=== PATIENT | female | born 1950 | race Caucasian/White ===

== ENCOUNTER 2020-12-09 15:24 | Inpatient (IN) | payer MEDICARE, BC ==
[~2020-12-09] VITALS: Ht 157.5 cm; Wt 74.8 kg
[2020-12-09 15:31] VITALS: BP 198/98
[2020-12-09] MEDS ORDERED: CARVEDILOL12.5 MG PO (15:37)
[2020-12-09] MEDS ORDERED: COLLAGEN PLUS1 EACH PO (15:37)
[2020-12-09] MEDS ORDERED: FOLIC ACID1 MG PO (15:38)
[2020-12-09] MEDS ORDERED: TART CHERRY CA1 EACH PO (15:38)
[2020-12-09] MEDS ORDERED: CINNAMON500 MG PO (15:38)
[2020-12-09] MEDS ORDERED: TURMERIC500 M2 PO (15:39)
[2020-12-09] MEDS ORDERED: GARLIC OIL1000 MG PO (15:39)
[2020-12-09] MEDS ORDERED: FISH OIL 1,0001 EAC9 PO (15:40)
[2020-12-09] MEDS ORDERED: COPPER2 MG PO (15:40)
[2020-12-09] MEDS ORDERED: IBUPROFEN 200200 M1 PO (15:40)
[2020-12-09] MEDS ORDERED: NIACIN500 M2 PO (15:40)
[2020-12-09] MEDS ORDERED: HYDROCODON-ACE1 EAC7 PO (15:41)
[2020-12-09] MEDS ORDERED: DRIZALMA SPRINK60 MG PO (15:41)
[2020-12-09] MEDS ORDERED: NEXIUM20 MG PO (15:41)
[2020-12-09] MEDS ORDERED: [UNRECOGNIZED DRUG - CODE] PO (15:42)
[2020-12-09] MEDS ORDERED: VITAMIN B-121000 MC2 SUBLING (15:42)
[2020-12-09] MEDS ORDERED: BIOTIN1000 MCG PO (15:42)
[2020-12-09] MEDS ORDERED: VITAMINC500 PO (15:43)
[2020-12-09 16:00] LABS: ABSOLUTE BASOPHILS 0.1 thou/uL (0.0-0.2); ABSOLUTE EOSINOPHILS 0.2 thou/uL (0.0-0.7); ABSOLUTE LYMPHOCYTES 1.8 thou/uL (0.8-5.3); ABSOLUTE MONOCYTES 1.1 thou/uL (0.0-1.2); ABSOLUTE NEUTROPHILS 4.4 thou/uL (1.6-8.1); EOSINOPHILS 2.5 %; HEMATOCRIT 28.6 % (37.0-47.0); HEMOGLOBIN 9.3 gm/dL (12.0-15.0); LYMPHOCYTES 24.2 %; MCH 27.7 pg (26.0-34.0); MCHC 32.5 g/dL (28.0-37.0); MCV 85.1 fL (80.0-100.0); MONOCYTES 14.5 %; MPV 7.8 fl. (7.2-11.1); NUCLEATED RBCS 0 /100WBC; PLATELET COUNT* 269 thou/uL (150-400); POLYS 57.8 %; RBC 3.36 mil/uL (4.20-5.00); RDW-CV 14.7 % (10.5-14.5); WBC 7.6 thou/uL (4.0-11.0)
[2020-12-09 16:07] LABS: CALCIUM 9.7 mg/dL (8.5-10.1); CREATININE 1.1 mg/dL (0.6-1.3); POTASSIUM 4.3 mmol/L (3.5-5.1)
[2020-12-09 16:11] LABS: ALBUMIN 2.9 g/dL (3.4-5.0); TOTAL BILIRUBIN 0.2 mg/dL (<0.1-1.0); TOTAL PROTEIN 7.8 g/dL (6.4-8.2)
[2020-12-09 21:08] LABS: CALCIUM 9.5 mg/dL (8.5-10.1); CREATININE 1.1 mg/dL (0.6-1.3); POTASSIUM 4.2 mmol/L (3.5-5.1)
[2020-12-09 21:21] LABS: % SATURATION 6 % (20-39); IRON 14 ug/dL (50-175)
[2020-12-09 21:26] VITALS: BP 160/73
[2020-12-09 22:20] VITALS: BP 172/69
[2020-12-10] VITALS: BP 167/76
[2020-12-10 07:35] VITALS: BP 163/78
--- NOTE | 2020-12-10 08:37 | NUR ---
PATIENT ADMITTED TO ROOM 316 FROM THE ER AT APPROXIMATELY 2145. REPORT GIVEN FROM NIGHT NURSE RODOLFO WHO TOOK ORIGINAL REPORT FROM THE ER NURSE. PATIENT ORIENTED TO ROOM AND POLICIES AND FALL EDUCATION GIVEN. IV FLUIDS STARTED-LEFT AC-NS @ 70ML/HR. IV ABT GIVEN ORDERED WITHOUT ANY ADVERSE SIDE EFFECTS NOTED. PATIENT HAS REMAINED NPO SINCE MIDNIGHT. VSS ON RA. DRESSING TO BILATERAL LOWER EXTREMITIES. PATIENT REFUSED TO HAVE NURSE REMOVE DRESSINGS AND PATIENT STATED THEY WERE JUST CHANGED DURING THE DAY BY THE PODIATRY DRRodney AT THE WOUND CARE CLINIC. MEDICATIONS GIVEN ORDERED AND CHARTED. PATIENT INSTRUCTED TO USE CALL LIGHT WHEN NEEDING ASSISTANCE. HOURLY ROUNDS MADE. WILL CONTINUE WITH PLAN OF CARE AND NURSING TO MONITOR.
--- NOTE | 2020-12-10 13:40 | NUR ---
WOUND NURSE: PATIENT SEEN TO ADDRESS MULTIPLE LESIONS ON BLE AND RIGHT FOOT. RIGHT LOWER LEG PRESENTS WITH A SHALLOW WOUND WITH IRREGULAR EDGES AND LARGE AMOUNT OF YELLOW DRAINAGE AND THE PRESENCE OF ODOR. MEASURES 11.0 X 7.0 X 0.1 CM. PRESENTS WITH RED GRANULATION TISSUE IN THE WOUND BED. PERIWOUND TISSUE IS REDDENED AND WARM TO TOUCH. RIGHT FOOT WOUND PRESENTS A STAGE 3 PRESSURE INJURY MEASURING 1.5 X 1.5 X 0.3 CM, CONTAINS PINK GRANULATION TISSUE IN THE WOUND BED WITH LARGE AMOUNT OF YELLOW DRAINAGE. A SECOND RIGHT FOOT WOUND MEASURES 0.5 X 0.5 X 0.2 CM AND PRESENTS A SHALLOW FULL THICKNESS EROSION. THIS TOO IS A STAGE 3 PRESSURE INJURY. CONTAINS A LARGE AMOUNT OF YELLOW DRAINAGE. LEFT LOWER LEG PRESENTS A SHALLOW EROSION MEASURING 14.5 X 8.0 X 0.2 CM. THERE IS A LARGE AMOUNT OF YELLOW [place] DRAINAGE AND THE WOUND BED CONTAINS 100% YELLOW SLOUGH. THERE IS A FINAL WOUND ON THE LEFT LATERAL ANKLE MEASURNG 7.0 X 7.0 X 0.2 CM AND CONTAINS 100% YELLOW SLOUGH AND LARGE AMOUNT OF YELLOW DRAINAGE. LEGS ARE PAINFUL, REDDENED, AND WARMTH TO TOUCH. THERE IS 1 + PITTING EDEMA NOTED. PATIENT WAS PREMEDICATED WITH FENTANYL AND TREATED TOPICALLY PRIOR TO DRESSING CHANGE AND PATIENT STILL REPORTED PAIN GREATER THAN 10 ON 1 TO 10 PAIN SCALE. ALL WOUNDS WERE CLEANSED WITH TAP WATER AND WASHCLOTHS, THEN PATTED DRY. APPLIED TOPICAL LIDOCAINE TO WOUNDS AND LET SET PRIOR TO CLEANSING. APPLIED THERAHONEY TO EACH WOUND BED, THEN COVERED WITH AQUACEL UNDER ABD, THEN WRAPPED TOES TO KNEE WITH COTTON CAST PADDING UNDER ARINA WRAP. PATIENT INSTRUCTED ON MEASURES TO PROMOTE HEALING AND PREVENT FURTHER COMPLICASIONS. PATIENT STATES SHE UNDERSTANDS.
[2020-12-10 17:00] VITALS: BP 168/69
--- NOTE | 2020-12-10 17:10 | NUR ---
PT REMAINED ALERT AND ORIENTED. PT C/O PAIN, MEDS GIVEN ORDERED. PT RESTING IN BED AND LEGS ELEVATED. DOWN FOR U/S TODAY, AWAITING RESULTS. WOUND CARE DRESSED WOUNDS. HOURLY ROUNDING COMPLETED.
[2020-12-10 21:00] VITALS: BP 149/70
[2020-12-11 04:41] VITALS: BP 161/68
[2020-12-11 07:40] VITALS: BP 177/72
--- NOTE | 2020-12-11 07:51 | NUR ---
PATIENT HAS SLEPT THROUGHOUT THE NIGHT. VSS ON RA. PAIN CONTROLLED WITH ORAL PAIN MEDICATIONS AND CHARTED. ASSESSMENT CHARTED. DRESSINGS TO BILATERAL LOWER LEGS ARE C/D/I. IV IN LEFT AC-NS @ 70ML/HR. IV ABT GIVEN WITHOUT ANY ADVERSE SIDE EFFECTS NOTED. FALL PRECAUTIONS IN PLACE AND HOURLY ROUNDS MADE. WILL CONTINUE WITH PLAN OF CARE AND NURSING TO MONITOR.
--- NOTE | 2020-12-11 08:45 | NUR ---
WOUND NURSE: PATIENT SEEN FOR FOLLOW UP ASSESSMENT PERTAINING TO BLE WOUNDS AND RIGHT FOOT WOUNDS. FAVORABLE PROGRESS TOWARD HEALING NOTED EVIDENCED BY LESS YELLOW SLOUGH IN WOUND BEDS CONTAINING THEM. ALSO THERE IS LESS BLE REDNESS AND DECREASED WARMTH. ALSO, PATIENT TOLERATED DRESSING CHANGES WITHOUT USE OF TOPICAL LIDOCAINE THIS MORNING AND WITHOUT FACIAL GRIMMACING. ALL WOUNDS TREATED PRESCRIBED.
--- NOTE | 2020-12-11 10:47 | NUR ---
Received consult for this patient for IR lower extremity angiography with intervention. Spoke with Dr. Paris and he will come out to [facility] tomorrow for the procedure at 13:00. The [employer] sales representative facility services will also be here for interventional purposes. Dr. Coker aware of plan.
--- NOTE | 2020-12-11 14:01 | NUR ---
Nutrition: Pt admitted with BLE venous stasis ulcers/cellulitis. Wt: 164#. Regular diet ordered. Labs: BG 114, albumin 2.9. RD ordered Santos bid for wound healing. No other nutrition concerns at this time. Mild risk.
--- NOTE | 2020-12-11 14:04 | EKG ---
[place] [address] ELECTROCARDIOGRAM REPORT Name: BAM MATTHEWS Room: [address] ADM IN M.R.#: [id number] Admission: 12/09/20 Attend Phys: Abisai Coker Discharge: Date of : 52 Date of Service: 12/09/20 1542 Report #: [id number] THIS REPORT FOR: //name// [facility] ED Test Date: 2020-12-09 Test Time: 15:42:13 Pat Name: BAM MATTHEWS Department: Room: [facility] Gender: F Technical Applications Specialist: MARISELA : 1950 Requested By: Char Lopez Order Number: [id number] MD: Daniel Plascencia Measurements Intervals [place] Rate: 92 P: 57 UT: 179 QRS: 29 QRSD: 91 T: 49 QT: 357 QTc: 442 Interpretive Statements Sinus rhythm Left atrial enlargement Baseline artifact No previous ECG available for comparison Electronically Signed On 12-11-2020 14:04:05 BUMP GRADER OPERATOR by Daniel Plascencia [email or web address] <ELECTRONICALLY SIGNED> By: Daniel Plascencia MD, [facility] 12/11/20 1404 1542 1542 Daniel Plascencia MD, [facility] /EPI
--- NOTE | 2020-12-11 16:21 | NUR ---
PT.SITTING IN BED, TALKING WITH DAUGHTER,CAMRON. PT.ALERT AND ORIENTED. SHE SAID SHE LIVES ALONE. FAMILY IS SUPPORTIVE. HAS A CANE AND WOULD LIKE A WALKER AT DISCHARGE. TOLD HER WE COULD ORDER ONE FOR HER TO BE DISPENSED FROM THERAPY AT DISCHARGE. SHE IS CURRENT WITH [facility] AND WANTS TO CONINTUE WTIH THEM AT DISCHARGE. SHE IS ANXIOUS TO FIND OUT THE RESULTS OF HER TESTS TODAY. HER DAUGHER,CAMRON PRITCHETT, IS HER DPOA FOR HEALTH CARE. CAMRON WILL TRY TO BRING A COPY FOR CHART.
[2020-12-11 16:23] VITALS: BP 172/70
--- NOTE | 2020-12-11 16:50 | NUR ---
PT REMAINED ALERT AND ORIENTED. CT CAME BACK NEGATIVE, PROCEDURE FOR TOMORROW CANCELLED. PT NOTIFIED. DRESSINGS CHANGED BY WOUND CARE. PAIN MEDS GIVEN ORDERED. HOURLY ROUNDING COMPLETED.
[2020-12-11 20:00] VITALS: BP 177/79
--- NOTE | 2020-12-12 04:34 | NUR ---
PATIENT SLEPT WELL DURING THIS SHIFT. PT USES CALL LIGHT APPROPRIATELY FOR ASSISTANCE TO BATHROOM. PT UP WITH WALKER TO BATHROOM. LOWER EXTREMITIES WITH WOUNDS; DSG AND ARINA WRAP IN PLACE. FLUIDS/ANTIBIOTICS INFUSING PER DR ORDER. FREQUENTLY USED ITEMS AND CALL LIGHT WITHIN REACH. SIDERAILS UPX2. WILL CONTINUE TO MONITOR.
[2020-12-12 07:56] VITALS: BP 159/73
--- NOTE | 2020-12-12 10:15 | NUR ---
WOUND NURSE: PATIENT SEEN FOR DRESSING CHANGES TO BLE AND RIGHT FOOT PRESCRIBED. DR. ASTORGA, PDM HERE AND SAW PATIENT AND C&S OF LEFT ANKLE AND RIGHT FOOT TAKEN.
[2020-12-12] MEDS ORDERED: HYDROCODON-ACE1 EAC7 PO (10:28)
[2020-12-12] MEDS ORDERED: CEFDINIR300 MG PO (10:28)
[2020-12-12] MEDS ORDERED: MOBIC7.5 M1 PO (10:28)
[2020-12-12 14:11] VITALS: BP 159/73
[2020-12-12 15:10] VITALS: BP 159/73
[2020-12-12 15:44] VITALS: BP 159/73
--- NOTE | 2020-12-12 15:46 | NUR ---
PT.WANTED TO USE [facility] AND DOES NOT WANT TO CHOOSE ANOTHER AGENCY. SPOKE WITH [facility] BREWSTER. SHE SAID THEY CANNOT DO DAILY DRESSING CHANGES ORDERED. PLAN IS FOR TO SEE PT.EVERY WEDNESDAY AT [facility] FOR DSG.CHANGE. HOME HEALTH WILL CHANGE ON /. PT.OR DAUGHTER WILL CHANGE WED,WED, SAT AND SUN. HH CANNOT GAURANTEE THEY WOULD HAVE A NURSE FOR SATURDAYS. GAVE VERBAL ORDER TO NARCISA THAT OK FOR HH TO START NEXT .12/17 AND SEE PT.EVERY /. ALL PUT ON DISCHARGE INSTRUCTIONS. APPT.WITH SET UP WITH [facility] FOR AT 2:00. TOLD NURSING TO SEND HOME SOME DRESSINGS AND THERAHONEY IF POSSIBLE.
[2020-12-12 16:25] VITALS: BP 159/73
--- NOTE | 2020-12-12 16:40 | NUR ---
[facility] NOTIFIED PT.NEEDED A WALKER PRIOR TO DISCHARGE. CM TEXTED NURSING PRODUCTION HAND THAT PT.NEEDED A WALKER FROM [facility]. PHYSICAL THERAPY GONE FOR DAY. FAXED ORDER TO [facility] FOR NS[facility].PRODUCTION HAND.
[2020-12-12 17:59] VITALS: BP 159/73
--- NOTE | 2020-12-12 18:02 | NUR ---
PATIENT GIVEN DISCHARGE INSTRUCTIONS WELL NEW PRESCRIPTION INFO SHEETS. PATIENT ALSO PROVIDED WITH SURGICAL SHOE AND WALKER TO TAKE HOME, PATIENT STATES SHE DOES NOT HAVE ONE THAT IS HER SIZE. PATIENT DENIED PAIN/QUESTIONS/CONCERNS PRIOR TO DISCHARGE. PATIENT GIVEN INFORMATION ON DRESSING CHANGES WELL SOME SUPPLIES TO LAST UNTIL HH SEES HER. PATIENT LEFT UNIT WITH PERSONAL BELONGINGS VIA WHEELCHAIR ACCOMPANIED BY NURSING STAFF AT APPROX. 1800.
[2020-12-14 16:08] LABS: ANA INTERPRETATION Negative (Negative)
== END 2020-12-12 18:00 | disposition home health service (06) | DRG 603 ==
LOC: M.3W 16:20 → M.TBA-ER 16:20 → M.3W 21:48
PROVIDERS: Nurse Practitioner Family; Podiatrist Foot & Ankle Surgery; ADMIT Internal Medicine; ATTEND Internal Medicine
DX: L03.115 Cellulitis of right lower limb (principal); E44.0 Moderate protein-calorie malnutrition; L03.116 Cellulitis of left lower limb; L97.522 Non-pressure chronic ulcer of other part of left foot with fat layer exposed; I87.303 Chronic venous hypertension (idiopathic) without complications of bilateral lower extremity; L97.512 Non-pressure chronic ulcer of other part of right foot with fat layer exposed; Z20.822 Contact with and (suspected) exposure to COVID-19; I10 Essential (primary) hypertension; I87.2 Venous insufficiency (chronic) (peripheral); D64.9 Anemia, unspecified; I77.1 Stricture of artery; K21.9 Gastro-esophageal reflux disease without esophagitis; L02.416 Cutaneous abscess of left lower limb; L02.415 Cutaneous abscess of right lower limb; Z88.2 Allergy status to sulfonamides; Z88.8 Allergy status to other drugs, medicaments and biological substances; Z91.041 Radiographic dye allergy status; Z83.3 Family history of diabetes mellitus; Z82.49 Family history of ischemic heart disease and other diseases of the circulatory system

== ENCOUNTER → 2020-12-16 | Outpatient (CLI) | payer MEDICARE, BC ==
[~2020-12-16] MED LIST: BIOTIN1000 MCG PO; CARVEDILOL12.5 MG PO; CEFDINIR300 MG PO; CINNAMON500 MG PO; CLEOCIN HCL300 MG PO; COLLAGEN PLUS1 EACH PO; COPPER2 MG PO; DRIZALMA SPRINK60 MG PO; FISH OIL 1,0001 EAC9 PO; FOLIC ACID1 MG PO; GARLIC OIL1000 MG PO; HYDROCODON-ACE1 EAC7 PO; IBUPROFEN 200200 M1 PO; MOBIC7.5 M1 PO; NEXIUM20 MG PO; NIACIN500 M2 PO; PREDNISONE 20 M20 M1 PO; TART CHERRY CA1 EACH PO; TURMERIC500 M2 PO; VITAMIN B-121000 MC2 SUBLING; VITAMINC500 PO; [UNRECOGNIZED DRUG - CODE] PO
== END ==
LOC: M.WC 13:51
PROVIDERS: ATTEND Podiatrist Foot & Ankle Surgery
DX: I70.232 Atherosclerosis of native arteries of right leg with ulceration of calf (principal); L97.212 Non-pressure chronic ulcer of right calf with fat layer exposed; I70.234 Atherosclerosis of native arteries of right leg with ulceration of heel and midfoot; L97.412 Non-pressure chronic ulcer of right heel and midfoot with fat layer exposed; I70.248 Atherosclerosis of native arteries of left leg with ulceration of other part of lower leg; L97.822 Non-pressure chronic ulcer of other part of left lower leg with fat layer exposed; I70.243 Atherosclerosis of native arteries of left leg with ulceration of ankle; L97.322 Non-pressure chronic ulcer of left ankle with fat layer exposed; L89.893 Pressure ulcer of other site, stage 3; I70.235 Atherosclerosis of native arteries of right leg with ulceration of other part of foot; L97.512 Non-pressure chronic ulcer of other part of right foot with fat layer exposed; L03.116 Cellulitis of left lower limb; L03.115 Cellulitis of right lower limb; L84 Corns and callosities; H26.9 Unspecified cataract; I10 Essential (primary) hypertension

== ENCOUNTER 2020-12-17 16:08 | Emergency (ER) | payer MEDICARE, BC ==
[~2020-12-17] VITALS: Ht 154.9 cm; Wt 77.1 kg
[~2020-12-17 16:08] MED LIST changes: -CLEOCIN HCL300 MG PO; -PREDNISONE 20 M20 M1 PO
[2020-12-17] MEDS ORDERED: CLEOCIN HCL300 MG PO (16:40)
[2020-12-17] MEDS ORDERED: PREDNISONE 20 M20 M1 PO (16:40)
[2020-12-17 16:56] VITALS: BP 178/67
== END 2020-12-17 16:57 | disposition home or self-care (01) ==
LOC: M.ERS 16:08
DX: L53.9 Erythematous condition, unspecified (principal); T36.1X5A Adverse effect of cephalosporins and other beta-lactam antibiotics, initial encounter; I10 Essential (primary) hypertension; Z88.2 Allergy status to sulfonamides; Z91.040 Latex allergy status; Z88.8 Allergy status to other drugs, medicaments and biological substances; Z91.011 Allergy to milk products; Z91.018 Allergy to other foods; Y92.89 Other specified places as the place of occurrence of the external cause

== ENCOUNTER → 2020-12-23 | Outpatient (CLI) | payer MEDICARE, BC ==
[~2020-12-23] MED LIST changes: +CLEOCIN HCL300 MG PO; +PREDNISONE 20 M20 M1 PO
== END ==
LOC: M.WC 13:35
PROVIDERS: ATTEND Podiatrist Foot & Ankle Surgery
DX: I70.232 Atherosclerosis of native arteries of right leg with ulceration of calf (principal); L97.212 Non-pressure chronic ulcer of right calf with fat layer exposed; I70.234 Atherosclerosis of native arteries of right leg with ulceration of heel and midfoot; L97.412 Non-pressure chronic ulcer of right heel and midfoot with fat layer exposed; I70.248 Atherosclerosis of native arteries of left leg with ulceration of other part of lower leg; L97.822 Non-pressure chronic ulcer of other part of left lower leg with fat layer exposed; I70.243 Atherosclerosis of native arteries of left leg with ulceration of ankle; L97.322 Non-pressure chronic ulcer of left ankle with fat layer exposed; L89.893 Pressure ulcer of other site, stage 3; I70.235 Atherosclerosis of native arteries of right leg with ulceration of other part of foot; L97.512 Non-pressure chronic ulcer of other part of right foot with fat layer exposed; L03.116 Cellulitis of left lower limb; L03.115 Cellulitis of right lower limb; L84 Corns and callosities; H26.9 Unspecified cataract; I10 Essential (primary) hypertension

== ENCOUNTER → 2020-12-30 | Outpatient (CLI) | payer MEDICARE, BC | LOC: M.WC 13:47 | PROVIDERS: ATTEND Podiatrist Foot & Ankle Surgery | DX: I70.232 Atherosclerosis of native arteries of right leg with ulceration of calf (principal); L97.212 Non-pressure chronic ulcer of right calf with fat layer exposed; I70.234 Atherosclerosis of native arteries of right leg with ulceration of heel and midfoot; L97.412 Non-pressure chronic ulcer of right heel and midfoot with fat layer exposed; I70.248 Atherosclerosis of native arteries of left leg with ulceration of other part of lower leg; L97.822 Non-pressure chronic ulcer of other part of left lower leg with fat layer exposed; I70.243 Atherosclerosis of native arteries of left leg with ulceration of ankle; L97.322 Non-pressure chronic ulcer of left ankle with fat layer exposed; L89.893 Pressure ulcer of other site, stage 3; I70.235 Atherosclerosis of native arteries of right leg with ulceration of other part of foot; L97.512 Non-pressure chronic ulcer of other part of right foot with fat layer exposed; L03.116 Cellulitis of left lower limb; L84 Corns and callosities; H26.9 Unspecified cataract; I10 Essential (primary) hypertension ==

== ENCOUNTER → 2021-01-06 | Outpatient (CLI) | payer MEDICARE, BC | LOC: M.WC 13:37 → M.RAD 13:37 → M.WC 14:00 | PROVIDERS: ATTEND Podiatrist Foot & Ankle Surgery | DX: I70.232 Atherosclerosis of native arteries of right leg with ulceration of calf (principal); L97.212 Non-pressure chronic ulcer of right calf with fat layer exposed; I70.234 Atherosclerosis of native arteries of right leg with ulceration of heel and midfoot; L97.412 Non-pressure chronic ulcer of right heel and midfoot with fat layer exposed; I70.248 Atherosclerosis of native arteries of left leg with ulceration of other part of lower leg; L97.822 Non-pressure chronic ulcer of other part of left lower leg with fat layer exposed; I70.243 Atherosclerosis of native arteries of left leg with ulceration of ankle; L97.322 Non-pressure chronic ulcer of left ankle with fat layer exposed; L89.893 Pressure ulcer of other site, stage 3; I70.235 Atherosclerosis of native arteries of right leg with ulceration of other part of foot; L97.512 Non-pressure chronic ulcer of other part of right foot with fat layer exposed; L03.116 Cellulitis of left lower limb; L84 Corns and callosities; H26.9 Unspecified cataract; I10 Essential (primary) hypertension ==

== ENCOUNTER → 2021-01-13 | Outpatient (CLI) | payer MEDICARE, BC | LOC: M.WC 13:19 | PROVIDERS: ATTEND Podiatrist Foot & Ankle Surgery | DX: I70.232 Atherosclerosis of native arteries of right leg with ulceration of calf (principal); L97.212 Non-pressure chronic ulcer of right calf with fat layer exposed; I70.234 Atherosclerosis of native arteries of right leg with ulceration of heel and midfoot; L97.412 Non-pressure chronic ulcer of right heel and midfoot with fat layer exposed; I70.248 Atherosclerosis of native arteries of left leg with ulceration of other part of lower leg; L97.822 Non-pressure chronic ulcer of other part of left lower leg with fat layer exposed; I70.243 Atherosclerosis of native arteries of left leg with ulceration of ankle; L97.322 Non-pressure chronic ulcer of left ankle with fat layer exposed; L89.893 Pressure ulcer of other site, stage 3; I70.235 Atherosclerosis of native arteries of right leg with ulceration of other part of foot; L97.512 Non-pressure chronic ulcer of other part of right foot with fat layer exposed; L03.116 Cellulitis of left lower limb; L84 Corns and callosities; H26.9 Unspecified cataract; I10 Essential (primary) hypertension; F41.9 Anxiety disorder, unspecified ==

== ENCOUNTER → 2021-01-20 | Outpatient (CLI) | payer MEDICARE, BC | LOC: M.WC 14:00 | PROVIDERS: ATTEND Podiatrist Foot & Ankle Surgery | DX: I87.313 Chronic venous hypertension (idiopathic) with ulcer of bilateral lower extremity (principal); I70.232 Atherosclerosis of native arteries of right leg with ulceration of calf; L97.212 Non-pressure chronic ulcer of right calf with fat layer exposed; I70.234 Atherosclerosis of native arteries of right leg with ulceration of heel and midfoot; L97.412 Non-pressure chronic ulcer of right heel and midfoot with fat layer exposed; I70.248 Atherosclerosis of native arteries of left leg with ulceration of other part of lower leg; L97.822 Non-pressure chronic ulcer of other part of left lower leg with fat layer exposed; I70.243 Atherosclerosis of native arteries of left leg with ulceration of ankle; L97.322 Non-pressure chronic ulcer of left ankle with fat layer exposed; L89.893 Pressure ulcer of other site, stage 3; I70.235 Atherosclerosis of native arteries of right leg with ulceration of other part of foot; L97.512 Non-pressure chronic ulcer of other part of right foot with fat layer exposed; L03.116 Cellulitis of left lower limb; L84 Corns and callosities; H26.9 Unspecified cataract; I10 Essential (primary) hypertension; F41.9 Anxiety disorder, unspecified ==

== ENCOUNTER → 2021-01-23 | Outpatient (CLI) | payer MEDICARE, BC | LOC: M.WC 13:45 | PROVIDERS: ATTEND Podiatrist Foot & Ankle Surgery | DX: I87.313 Chronic venous hypertension (idiopathic) with ulcer of bilateral lower extremity (principal); I70.232 Atherosclerosis of native arteries of right leg with ulceration of calf; L97.212 Non-pressure chronic ulcer of right calf with fat layer exposed; I70.234 Atherosclerosis of native arteries of right leg with ulceration of heel and midfoot; L97.412 Non-pressure chronic ulcer of right heel and midfoot with fat layer exposed; I70.248 Atherosclerosis of native arteries of left leg with ulceration of other part of lower leg; L97.822 Non-pressure chronic ulcer of other part of left lower leg with fat layer exposed; I70.243 Atherosclerosis of native arteries of left leg with ulceration of ankle; L97.322 Non-pressure chronic ulcer of left ankle with fat layer exposed; L89.893 Pressure ulcer of other site, stage 3; I70.235 Atherosclerosis of native arteries of right leg with ulceration of other part of foot; L97.512 Non-pressure chronic ulcer of other part of right foot with fat layer exposed; L03.116 Cellulitis of left lower limb; L84 Corns and callosities; H26.9 Unspecified cataract; I10 Essential (primary) hypertension; F41.9 Anxiety disorder, unspecified ==

== ENCOUNTER → 2021-01-27 | Outpatient (CLI) | payer MEDICARE, BC | LOC: M.WC 13:34 | PROVIDERS: ATTEND Podiatrist Foot & Ankle Surgery | DX: I87.313 Chronic venous hypertension (idiopathic) with ulcer of bilateral lower extremity (principal); I70.232 Atherosclerosis of native arteries of right leg with ulceration of calf; L97.212 Non-pressure chronic ulcer of right calf with fat layer exposed; I70.234 Atherosclerosis of native arteries of right leg with ulceration of heel and midfoot; L97.412 Non-pressure chronic ulcer of right heel and midfoot with fat layer exposed; I70.248 Atherosclerosis of native arteries of left leg with ulceration of other part of lower leg; L97.822 Non-pressure chronic ulcer of other part of left lower leg with fat layer exposed; I70.243 Atherosclerosis of native arteries of left leg with ulceration of ankle; L97.322 Non-pressure chronic ulcer of left ankle with fat layer exposed; L89.893 Pressure ulcer of other site, stage 3; I70.235 Atherosclerosis of native arteries of right leg with ulceration of other part of foot; L97.512 Non-pressure chronic ulcer of other part of right foot with fat layer exposed; L03.116 Cellulitis of left lower limb; H26.9 Unspecified cataract; I10 Essential (primary) hypertension; F41.9 Anxiety disorder, unspecified ==

== ENCOUNTER → 2021-02-03 | Outpatient (CLI) | payer MEDICARE, BC | LOC: M.WC 13:25 | PROVIDERS: ATTEND Podiatrist Foot & Ankle Surgery | DX: I87.313 Chronic venous hypertension (idiopathic) with ulcer of bilateral lower extremity (principal); I70.232 Atherosclerosis of native arteries of right leg with ulceration of calf; L97.212 Non-pressure chronic ulcer of right calf with fat layer exposed; I70.234 Atherosclerosis of native arteries of right leg with ulceration of heel and midfoot; L97.412 Non-pressure chronic ulcer of right heel and midfoot with fat layer exposed; I70.248 Atherosclerosis of native arteries of left leg with ulceration of other part of lower leg; L97.822 Non-pressure chronic ulcer of other part of left lower leg with fat layer exposed; I70.243 Atherosclerosis of native arteries of left leg with ulceration of ankle; L97.322 Non-pressure chronic ulcer of left ankle with fat layer exposed; L89.893 Pressure ulcer of other site, stage 3; I70.235 Atherosclerosis of native arteries of right leg with ulceration of other part of foot; L97.512 Non-pressure chronic ulcer of other part of right foot with fat layer exposed; L03.116 Cellulitis of left lower limb; H26.9 Unspecified cataract; I10 Essential (primary) hypertension; F41.9 Anxiety disorder, unspecified ==

== ENCOUNTER → 2021-02-17 | Outpatient (CLI) | payer MEDICARE, BC | LOC: M.WC 13:30 | PROVIDERS: ATTEND Podiatrist Foot & Ankle Surgery | DX: I87.313 Chronic venous hypertension (idiopathic) with ulcer of bilateral lower extremity (principal); I70.232 Atherosclerosis of native arteries of right leg with ulceration of calf; L97.212 Non-pressure chronic ulcer of right calf with fat layer exposed; I70.234 Atherosclerosis of native arteries of right leg with ulceration of heel and midfoot; L97.412 Non-pressure chronic ulcer of right heel and midfoot with fat layer exposed; I70.248 Atherosclerosis of native arteries of left leg with ulceration of other part of lower leg; L97.822 Non-pressure chronic ulcer of other part of left lower leg with fat layer exposed; I70.243 Atherosclerosis of native arteries of left leg with ulceration of ankle; L97.322 Non-pressure chronic ulcer of left ankle with fat layer exposed; I70.235 Atherosclerosis of native arteries of right leg with ulceration of other part of foot; L97.512 Non-pressure chronic ulcer of other part of right foot with fat layer exposed; L03.116 Cellulitis of left lower limb; H26.9 Unspecified cataract; I10 Essential (primary) hypertension; F41.9 Anxiety disorder, unspecified ==

== ENCOUNTER → 2021-02-24 | Outpatient (CLI) | payer MEDICARE, BC | LOC: M.WC 13:31 | PROVIDERS: ATTEND Podiatrist Foot & Ankle Surgery | DX: I87.313 Chronic venous hypertension (idiopathic) with ulcer of bilateral lower extremity (principal); I70.232 Atherosclerosis of native arteries of right leg with ulceration of calf; L97.212 Non-pressure chronic ulcer of right calf with fat layer exposed; I70.234 Atherosclerosis of native arteries of right leg with ulceration of heel and midfoot; L97.412 Non-pressure chronic ulcer of right heel and midfoot with fat layer exposed; I70.248 Atherosclerosis of native arteries of left leg with ulceration of other part of lower leg; L97.822 Non-pressure chronic ulcer of other part of left lower leg with fat layer exposed; I70.243 Atherosclerosis of native arteries of left leg with ulceration of ankle; L97.322 Non-pressure chronic ulcer of left ankle with fat layer exposed; I70.235 Atherosclerosis of native arteries of right leg with ulceration of other part of foot; L97.512 Non-pressure chronic ulcer of other part of right foot with fat layer exposed; L03.116 Cellulitis of left lower limb; H26.9 Unspecified cataract; I10 Essential (primary) hypertension; F41.9 Anxiety disorder, unspecified ==

== ENCOUNTER → 2021-03-03 | Outpatient (CLI) | payer MEDICARE, BC | LOC: M.WC 13:33 | PROVIDERS: ATTEND Podiatrist Foot & Ankle Surgery | DX: I87.313 Chronic venous hypertension (idiopathic) with ulcer of bilateral lower extremity (principal); I70.232 Atherosclerosis of native arteries of right leg with ulceration of calf; L97.212 Non-pressure chronic ulcer of right calf with fat layer exposed; I70.234 Atherosclerosis of native arteries of right leg with ulceration of heel and midfoot; L97.412 Non-pressure chronic ulcer of right heel and midfoot with fat layer exposed; I70.248 Atherosclerosis of native arteries of left leg with ulceration of other part of lower leg; L97.822 Non-pressure chronic ulcer of other part of left lower leg with fat layer exposed; I70.243 Atherosclerosis of native arteries of left leg with ulceration of ankle; L97.322 Non-pressure chronic ulcer of left ankle with fat layer exposed; I70.235 Atherosclerosis of native arteries of right leg with ulceration of other part of foot; L97.512 Non-pressure chronic ulcer of other part of right foot with fat layer exposed; L03.116 Cellulitis of left lower limb; H26.9 Unspecified cataract; I10 Essential (primary) hypertension; F41.9 Anxiety disorder, unspecified ==

== ENCOUNTER → 2021-03-10 | Outpatient (CLI) | payer MEDICARE, BC | LOC: M.WC 13:36 | PROVIDERS: ATTEND Podiatrist Foot & Ankle Surgery | DX: I87.313 Chronic venous hypertension (idiopathic) with ulcer of bilateral lower extremity (principal); I70.232 Atherosclerosis of native arteries of right leg with ulceration of calf; L97.212 Non-pressure chronic ulcer of right calf with fat layer exposed; I70.234 Atherosclerosis of native arteries of right leg with ulceration of heel and midfoot; L97.412 Non-pressure chronic ulcer of right heel and midfoot with fat layer exposed; I70.248 Atherosclerosis of native arteries of left leg with ulceration of other part of lower leg; L97.822 Non-pressure chronic ulcer of other part of left lower leg with fat layer exposed; I70.243 Atherosclerosis of native arteries of left leg with ulceration of ankle; L97.322 Non-pressure chronic ulcer of left ankle with fat layer exposed; I70.235 Atherosclerosis of native arteries of right leg with ulceration of other part of foot; L97.512 Non-pressure chronic ulcer of other part of right foot with fat layer exposed; L03.116 Cellulitis of left lower limb; H26.9 Unspecified cataract; I10 Essential (primary) hypertension; F41.9 Anxiety disorder, unspecified ==

== ENCOUNTER → 2021-03-17 | Outpatient (CLI) | payer MEDICARE, BC | LOC: M.WC 13:31 | PROVIDERS: ATTEND Podiatrist Foot & Ankle Surgery | DX: I87.313 Chronic venous hypertension (idiopathic) with ulcer of bilateral lower extremity (principal); I70.232 Atherosclerosis of native arteries of right leg with ulceration of calf; L97.212 Non-pressure chronic ulcer of right calf with fat layer exposed; I70.234 Atherosclerosis of native arteries of right leg with ulceration of heel and midfoot; L97.412 Non-pressure chronic ulcer of right heel and midfoot with fat layer exposed; I70.248 Atherosclerosis of native arteries of left leg with ulceration of other part of lower leg; L97.822 Non-pressure chronic ulcer of other part of left lower leg with fat layer exposed; I70.243 Atherosclerosis of native arteries of left leg with ulceration of ankle; L97.322 Non-pressure chronic ulcer of left ankle with fat layer exposed; I70.235 Atherosclerosis of native arteries of right leg with ulceration of other part of foot; L97.512 Non-pressure chronic ulcer of other part of right foot with fat layer exposed; L03.116 Cellulitis of left lower limb; L84 Corns and callosities; H26.9 Unspecified cataract; I10 Essential (primary) hypertension; F41.9 Anxiety disorder, unspecified ==

== ENCOUNTER → 2021-03-24 | Outpatient (CLI) | payer MEDICARE, BC | LOC: M.WC 14:00 | PROVIDERS: ATTEND Podiatrist Foot & Ankle Surgery | DX: I87.313 Chronic venous hypertension (idiopathic) with ulcer of bilateral lower extremity (principal); I70.232 Atherosclerosis of native arteries of right leg with ulceration of calf; L97.212 Non-pressure chronic ulcer of right calf with fat layer exposed; I70.234 Atherosclerosis of native arteries of right leg with ulceration of heel and midfoot; L97.412 Non-pressure chronic ulcer of right heel and midfoot with fat layer exposed; I70.248 Atherosclerosis of native arteries of left leg with ulceration of other part of lower leg; L97.822 Non-pressure chronic ulcer of other part of left lower leg with fat layer exposed; I70.243 Atherosclerosis of native arteries of left leg with ulceration of ankle; L97.322 Non-pressure chronic ulcer of left ankle with fat layer exposed; I70.235 Atherosclerosis of native arteries of right leg with ulceration of other part of foot; L97.512 Non-pressure chronic ulcer of other part of right foot with fat layer exposed; L03.116 Cellulitis of left lower limb; L84 Corns and callosities; H26.9 Unspecified cataract; I10 Essential (primary) hypertension; F41.9 Anxiety disorder, unspecified ==

== ENCOUNTER → 2021-03-27 | Outpatient (CLI) | payer MEDICARE, BC | LOC: M.WC 13:37 | PROVIDERS: ATTEND Podiatrist Foot & Ankle Surgery | DX: I87.313 Chronic venous hypertension (idiopathic) with ulcer of bilateral lower extremity (principal); I70.248 Atherosclerosis of native arteries of left leg with ulceration of other part of lower leg; L97.822 Non-pressure chronic ulcer of other part of left lower leg with fat layer exposed; I70.243 Atherosclerosis of native arteries of left leg with ulceration of ankle; L97.322 Non-pressure chronic ulcer of left ankle with fat layer exposed; I70.235 Atherosclerosis of native arteries of right leg with ulceration of other part of foot; L97.512 Non-pressure chronic ulcer of other part of right foot with fat layer exposed; I70.232 Atherosclerosis of native arteries of right leg with ulceration of calf; L97.212 Non-pressure chronic ulcer of right calf with fat layer exposed; I70.234 Atherosclerosis of native arteries of right leg with ulceration of heel and midfoot; L97.412 Non-pressure chronic ulcer of right heel and midfoot with fat layer exposed; L03.116 Cellulitis of left lower limb; L84 Corns and callosities; H26.9 Unspecified cataract; I10 Essential (primary) hypertension; F41.9 Anxiety disorder, unspecified ==

== ENCOUNTER → 2021-04-01 | Outpatient (CLI) | payer MEDICARE, BC | LOC: M.WC 13:26 | PROVIDERS: ATTEND Podiatrist Foot & Ankle Surgery | DX: I87.313 Chronic venous hypertension (idiopathic) with ulcer of bilateral lower extremity (principal); I70.232 Atherosclerosis of native arteries of right leg with ulceration of calf; L97.212 Non-pressure chronic ulcer of right calf with fat layer exposed; I70.234 Atherosclerosis of native arteries of right leg with ulceration of heel and midfoot; L97.412 Non-pressure chronic ulcer of right heel and midfoot with fat layer exposed; I70.248 Atherosclerosis of native arteries of left leg with ulceration of other part of lower leg; L97.822 Non-pressure chronic ulcer of other part of left lower leg with fat layer exposed; I70.243 Atherosclerosis of native arteries of left leg with ulceration of ankle; L97.322 Non-pressure chronic ulcer of left ankle with fat layer exposed; I70.235 Atherosclerosis of native arteries of right leg with ulceration of other part of foot; L97.512 Non-pressure chronic ulcer of other part of right foot with fat layer exposed; L03.116 Cellulitis of left lower limb; L84 Corns and callosities; H26.9 Unspecified cataract; I10 Essential (primary) hypertension; F41.9 Anxiety disorder, unspecified ==

== ENCOUNTER → 2021-04-04 | Outpatient (CLI) | payer MEDICARE, BC | LOC: M.WC 13:28 | PROVIDERS: ATTEND Podiatrist Foot & Ankle Surgery | DX: I87.313 Chronic venous hypertension (idiopathic) with ulcer of bilateral lower extremity (principal); I70.248 Atherosclerosis of native arteries of left leg with ulceration of other part of lower leg; L97.822 Non-pressure chronic ulcer of other part of left lower leg with fat layer exposed; L97.212 Non-pressure chronic ulcer of right calf with fat layer exposed; L97.412 Non-pressure chronic ulcer of right heel and midfoot with fat layer exposed; L97.512 Non-pressure chronic ulcer of other part of right foot with fat layer exposed; I70.243 Atherosclerosis of native arteries of left leg with ulceration of ankle; L97.322 Non-pressure chronic ulcer of left ankle with fat layer exposed; H26.9 Unspecified cataract; I10 Essential (primary) hypertension ==

== ENCOUNTER → 2021-04-07 | Outpatient (CLI) | payer MEDICARE, BC | LOC: M.WC 14:00 | PROVIDERS: ATTEND Podiatrist Foot & Ankle Surgery | DX: I87.313 Chronic venous hypertension (idiopathic) with ulcer of bilateral lower extremity (principal); I70.232 Atherosclerosis of native arteries of right leg with ulceration of calf; L97.212 Non-pressure chronic ulcer of right calf with fat layer exposed; I70.234 Atherosclerosis of native arteries of right leg with ulceration of heel and midfoot; L97.412 Non-pressure chronic ulcer of right heel and midfoot with fat layer exposed; I70.248 Atherosclerosis of native arteries of left leg with ulceration of other part of lower leg; L97.822 Non-pressure chronic ulcer of other part of left lower leg with fat layer exposed; I70.243 Atherosclerosis of native arteries of left leg with ulceration of ankle; L97.322 Non-pressure chronic ulcer of left ankle with fat layer exposed; I70.235 Atherosclerosis of native arteries of right leg with ulceration of other part of foot; L97.512 Non-pressure chronic ulcer of other part of right foot with fat layer exposed; L03.116 Cellulitis of left lower limb; L84 Corns and callosities; H26.9 Unspecified cataract; I10 Essential (primary) hypertension; F41.9 Anxiety disorder, unspecified ==

== ENCOUNTER → 2021-04-14 | Outpatient (CLI) | payer MEDICARE, BC | LOC: M.WC 13:47 | PROVIDERS: ATTEND Podiatrist Foot & Ankle Surgery | DX: I87.313 Chronic venous hypertension (idiopathic) with ulcer of bilateral lower extremity (principal); I70.232 Atherosclerosis of native arteries of right leg with ulceration of calf; L97.212 Non-pressure chronic ulcer of right calf with fat layer exposed; I70.234 Atherosclerosis of native arteries of right leg with ulceration of heel and midfoot; L97.412 Non-pressure chronic ulcer of right heel and midfoot with fat layer exposed; I70.248 Atherosclerosis of native arteries of left leg with ulceration of other part of lower leg; L97.822 Non-pressure chronic ulcer of other part of left lower leg with fat layer exposed; I70.243 Atherosclerosis of native arteries of left leg with ulceration of ankle; L97.322 Non-pressure chronic ulcer of left ankle with fat layer exposed; I70.235 Atherosclerosis of native arteries of right leg with ulceration of other part of foot; L97.512 Non-pressure chronic ulcer of other part of right foot with fat layer exposed; L03.116 Cellulitis of left lower limb; L84 Corns and callosities; H26.9 Unspecified cataract; I10 Essential (primary) hypertension; F41.9 Anxiety disorder, unspecified ==

== ENCOUNTER → 2021-04-17 | Outpatient (CLI) | payer MEDICARE, BC | LOC: M.WC 12:29 | PROVIDERS: ATTEND Podiatrist Foot & Ankle Surgery | DX: I70.248 Atherosclerosis of native arteries of left leg with ulceration of other part of lower leg (principal); L97.822 Non-pressure chronic ulcer of other part of left lower leg with fat layer exposed; L97.412 Non-pressure chronic ulcer of right heel and midfoot with fat layer exposed; L97.512 Non-pressure chronic ulcer of other part of right foot with fat layer exposed; I70.243 Atherosclerosis of native arteries of left leg with ulceration of ankle; L97.322 Non-pressure chronic ulcer of left ankle with fat layer exposed; L84 Corns and callosities; H26.9 Unspecified cataract; I10 Essential (primary) hypertension; F41.9 Anxiety disorder, unspecified ==

== ENCOUNTER → 2021-04-21 | Outpatient (CLI) | payer MEDICARE, BC ==
[2021-04-21 16:04] LABS: PROTIME 10.3 Seconds (9.20-11.50)
== END ==
LOC: M.WC 13:43 → M.LAB 13:43 → M.WC 14:00
PROVIDERS: ATTEND Podiatrist Foot & Ankle Surgery
DX: I87.313 Chronic venous hypertension (idiopathic) with ulcer of bilateral lower extremity (principal); I70.232 Atherosclerosis of native arteries of right leg with ulceration of calf; L97.212 Non-pressure chronic ulcer of right calf with fat layer exposed; I70.234 Atherosclerosis of native arteries of right leg with ulceration of heel and midfoot; L97.412 Non-pressure chronic ulcer of right heel and midfoot with fat layer exposed; I70.248 Atherosclerosis of native arteries of left leg with ulceration of other part of lower leg; L97.822 Non-pressure chronic ulcer of other part of left lower leg with fat layer exposed; I70.243 Atherosclerosis of native arteries of left leg with ulceration of ankle; L97.322 Non-pressure chronic ulcer of left ankle with fat layer exposed; I70.235 Atherosclerosis of native arteries of right leg with ulceration of other part of foot; L97.512 Non-pressure chronic ulcer of other part of right foot with fat layer exposed; L03.116 Cellulitis of left lower limb; L84 Corns and callosities; H26.9 Unspecified cataract; I10 Essential (primary) hypertension; F41.9 Anxiety disorder, unspecified

== ENCOUNTER → 2021-04-28 | Outpatient (CLI) | payer MEDICARE, BC | LOC: M.WC 13:45 | PROVIDERS: ATTEND Podiatrist Foot & Ankle Surgery | DX: I87.313 Chronic venous hypertension (idiopathic) with ulcer of bilateral lower extremity (principal); I70.232 Atherosclerosis of native arteries of right leg with ulceration of calf; L97.212 Non-pressure chronic ulcer of right calf with fat layer exposed; I70.234 Atherosclerosis of native arteries of right leg with ulceration of heel and midfoot; L97.412 Non-pressure chronic ulcer of right heel and midfoot with fat layer exposed; I70.248 Atherosclerosis of native arteries of left leg with ulceration of other part of lower leg; L97.822 Non-pressure chronic ulcer of other part of left lower leg with fat layer exposed; I70.243 Atherosclerosis of native arteries of left leg with ulceration of ankle; L97.322 Non-pressure chronic ulcer of left ankle with fat layer exposed; I70.235 Atherosclerosis of native arteries of right leg with ulceration of other part of foot; L97.512 Non-pressure chronic ulcer of other part of right foot with fat layer exposed; L03.116 Cellulitis of left lower limb; L84 Corns and callosities; H26.9 Unspecified cataract; I10 Essential (primary) hypertension; F41.9 Anxiety disorder, unspecified ==

== ENCOUNTER → 2021-05-12 | Outpatient (CLI) | payer MEDICARE, BC | LOC: M.WC 13:12 | PROVIDERS: ATTEND Podiatrist Foot & Ankle Surgery | DX: I87.313 Chronic venous hypertension (idiopathic) with ulcer of bilateral lower extremity (principal); I70.232 Atherosclerosis of native arteries of right leg with ulceration of calf; L97.212 Non-pressure chronic ulcer of right calf with fat layer exposed; I70.234 Atherosclerosis of native arteries of right leg with ulceration of heel and midfoot; L97.412 Non-pressure chronic ulcer of right heel and midfoot with fat layer exposed; I70.248 Atherosclerosis of native arteries of left leg with ulceration of other part of lower leg; L97.822 Non-pressure chronic ulcer of other part of left lower leg with fat layer exposed; I70.243 Atherosclerosis of native arteries of left leg with ulceration of ankle; L97.322 Non-pressure chronic ulcer of left ankle with fat layer exposed; I70.235 Atherosclerosis of native arteries of right leg with ulceration of other part of foot; L97.512 Non-pressure chronic ulcer of other part of right foot with fat layer exposed; L03.116 Cellulitis of left lower limb; L84 Corns and callosities; H26.9 Unspecified cataract; I10 Essential (primary) hypertension; F41.9 Anxiety disorder, unspecified ==

== ENCOUNTER → 2021-05-19 | Outpatient (CLI) | payer MEDICARE, BC | LOC: M.WC 13:57 | PROVIDERS: ATTEND Podiatrist Foot & Ankle Surgery | DX: I87.313 Chronic venous hypertension (idiopathic) with ulcer of bilateral lower extremity (principal); I70.232 Atherosclerosis of native arteries of right leg with ulceration of calf; L97.212 Non-pressure chronic ulcer of right calf with fat layer exposed; I70.234 Atherosclerosis of native arteries of right leg with ulceration of heel and midfoot; L97.412 Non-pressure chronic ulcer of right heel and midfoot with fat layer exposed; I70.248 Atherosclerosis of native arteries of left leg with ulceration of other part of lower leg; L97.822 Non-pressure chronic ulcer of other part of left lower leg with fat layer exposed; I70.243 Atherosclerosis of native arteries of left leg with ulceration of ankle; L97.322 Non-pressure chronic ulcer of left ankle with fat layer exposed; I70.235 Atherosclerosis of native arteries of right leg with ulceration of other part of foot; L97.512 Non-pressure chronic ulcer of other part of right foot with fat layer exposed; L03.116 Cellulitis of left lower limb; L84 Corns and callosities; H26.9 Unspecified cataract; I10 Essential (primary) hypertension; F41.9 Anxiety disorder, unspecified ==

== ENCOUNTER → 2021-05-26 | Outpatient (CLI) | payer MEDICARE, BC | LOC: M.WC 12:44 | PROVIDERS: ATTEND Podiatrist Foot & Ankle Surgery | DX: I87.313 Chronic venous hypertension (idiopathic) with ulcer of bilateral lower extremity (principal); I70.232 Atherosclerosis of native arteries of right leg with ulceration of calf; L97.212 Non-pressure chronic ulcer of right calf with fat layer exposed; I70.234 Atherosclerosis of native arteries of right leg with ulceration of heel and midfoot; L97.412 Non-pressure chronic ulcer of right heel and midfoot with fat layer exposed; I70.248 Atherosclerosis of native arteries of left leg with ulceration of other part of lower leg; L97.822 Non-pressure chronic ulcer of other part of left lower leg with fat layer exposed; I70.243 Atherosclerosis of native arteries of left leg with ulceration of ankle; L97.322 Non-pressure chronic ulcer of left ankle with fat layer exposed; I70.235 Atherosclerosis of native arteries of right leg with ulceration of other part of foot; L97.512 Non-pressure chronic ulcer of other part of right foot with fat layer exposed; L03.116 Cellulitis of left lower limb; L84 Corns and callosities; H26.9 Unspecified cataract; I10 Essential (primary) hypertension; F41.9 Anxiety disorder, unspecified ==

== ENCOUNTER → 2021-06-02 | Outpatient (CLI) | payer MEDICARE, BC | LOC: M.WC 13:57 | PROVIDERS: ATTEND Podiatrist Foot & Ankle Surgery | DX: I87.313 Chronic venous hypertension (idiopathic) with ulcer of bilateral lower extremity (principal); I70.232 Atherosclerosis of native arteries of right leg with ulceration of calf; L97.212 Non-pressure chronic ulcer of right calf with fat layer exposed; I70.234 Atherosclerosis of native arteries of right leg with ulceration of heel and midfoot; L97.412 Non-pressure chronic ulcer of right heel and midfoot with fat layer exposed; I70.248 Atherosclerosis of native arteries of left leg with ulceration of other part of lower leg; L97.822 Non-pressure chronic ulcer of other part of left lower leg with fat layer exposed; I70.243 Atherosclerosis of native arteries of left leg with ulceration of ankle; L97.322 Non-pressure chronic ulcer of left ankle with fat layer exposed; I70.235 Atherosclerosis of native arteries of right leg with ulceration of other part of foot; L97.512 Non-pressure chronic ulcer of other part of right foot with fat layer exposed; L03.116 Cellulitis of left lower limb; L84 Corns and callosities; H26.9 Unspecified cataract; I10 Essential (primary) hypertension; F41.9 Anxiety disorder, unspecified ==

== ENCOUNTER → 2021-06-09 | Outpatient (CLI) | payer MEDICARE, BC | LOC: M.WC 13:11 | PROVIDERS: ATTEND Podiatrist Foot & Ankle Surgery | DX: I87.313 Chronic venous hypertension (idiopathic) with ulcer of bilateral lower extremity (principal); I70.232 Atherosclerosis of native arteries of right leg with ulceration of calf; L97.212 Non-pressure chronic ulcer of right calf with fat layer exposed; I70.234 Atherosclerosis of native arteries of right leg with ulceration of heel and midfoot; L97.412 Non-pressure chronic ulcer of right heel and midfoot with fat layer exposed; I70.248 Atherosclerosis of native arteries of left leg with ulceration of other part of lower leg; L97.822 Non-pressure chronic ulcer of other part of left lower leg with fat layer exposed; I70.243 Atherosclerosis of native arteries of left leg with ulceration of ankle; L97.322 Non-pressure chronic ulcer of left ankle with fat layer exposed; I70.235 Atherosclerosis of native arteries of right leg with ulceration of other part of foot; L97.512 Non-pressure chronic ulcer of other part of right foot with fat layer exposed; L03.116 Cellulitis of left lower limb; L84 Corns and callosities; H26.9 Unspecified cataract; I10 Essential (primary) hypertension; F41.9 Anxiety disorder, unspecified ==

== ENCOUNTER → 2021-06-16 | Outpatient (CLI) | payer MEDICARE, BC | LOC: M.WC 13:38 | PROVIDERS: ATTEND Podiatrist Foot & Ankle Surgery | DX: I87.313 Chronic venous hypertension (idiopathic) with ulcer of bilateral lower extremity (principal); I70.232 Atherosclerosis of native arteries of right leg with ulceration of calf; L97.212 Non-pressure chronic ulcer of right calf with fat layer exposed; I70.234 Atherosclerosis of native arteries of right leg with ulceration of heel and midfoot; L97.412 Non-pressure chronic ulcer of right heel and midfoot with fat layer exposed; I70.248 Atherosclerosis of native arteries of left leg with ulceration of other part of lower leg; L97.822 Non-pressure chronic ulcer of other part of left lower leg with fat layer exposed; I70.243 Atherosclerosis of native arteries of left leg with ulceration of ankle; L97.322 Non-pressure chronic ulcer of left ankle with fat layer exposed; I70.235 Atherosclerosis of native arteries of right leg with ulceration of other part of foot; L97.512 Non-pressure chronic ulcer of other part of right foot with fat layer exposed; L03.116 Cellulitis of left lower limb; L84 Corns and callosities; H26.9 Unspecified cataract; I10 Essential (primary) hypertension; F41.9 Anxiety disorder, unspecified ==

== ENCOUNTER → 2021-06-23 | Outpatient (CLI) | payer MEDICARE, BC | LOC: M.WC 13:43 | PROVIDERS: ATTEND Podiatrist Foot & Ankle Surgery | DX: I87.313 Chronic venous hypertension (idiopathic) with ulcer of bilateral lower extremity (principal); I70.232 Atherosclerosis of native arteries of right leg with ulceration of calf; L97.212 Non-pressure chronic ulcer of right calf with fat layer exposed; I70.234 Atherosclerosis of native arteries of right leg with ulceration of heel and midfoot; L97.412 Non-pressure chronic ulcer of right heel and midfoot with fat layer exposed; I70.248 Atherosclerosis of native arteries of left leg with ulceration of other part of lower leg; L97.822 Non-pressure chronic ulcer of other part of left lower leg with fat layer exposed; I70.243 Atherosclerosis of native arteries of left leg with ulceration of ankle; L97.322 Non-pressure chronic ulcer of left ankle with fat layer exposed; I70.235 Atherosclerosis of native arteries of right leg with ulceration of other part of foot; L97.512 Non-pressure chronic ulcer of other part of right foot with fat layer exposed; L03.116 Cellulitis of left lower limb; L84 Corns and callosities; H26.9 Unspecified cataract; I10 Essential (primary) hypertension; F41.9 Anxiety disorder, unspecified ==

== ENCOUNTER → 2021-06-30 | Outpatient (CLI) | payer MEDICARE, BC | LOC: M.ULTRA 13:34 → M.WC 13:34 | PROVIDERS: ATTEND Podiatrist Foot & Ankle Surgery | DX: I70.248 Atherosclerosis of native arteries of left leg with ulceration of other part of lower leg (principal); L97.822 Non-pressure chronic ulcer of other part of left lower leg with fat layer exposed; I70.243 Atherosclerosis of native arteries of left leg with ulceration of ankle; L97.322 Non-pressure chronic ulcer of left ankle with fat layer exposed; I70.234 Atherosclerosis of native arteries of right leg with ulceration of heel and midfoot; L97.412 Non-pressure chronic ulcer of right heel and midfoot with fat layer exposed; I70.232 Atherosclerosis of native arteries of right leg with ulceration of calf; L97.212 Non-pressure chronic ulcer of right calf with fat layer exposed; H26.9 Unspecified cataract; I10 Essential (primary) hypertension; I87.8 Other specified disorders of veins; F41.9 Anxiety disorder, unspecified ==